=== PATIENT | female | born 1950 | race Caucasian/White ===

== ENCOUNTER 2018-09-04 05:31 | Inpatient (IN) ==
--- NOTE | 2018-09-02 17:30 | MH ---
cc: Jhon Rendon MD DATE OF ADMISSION: 09/04/2018 She will be admitted to the hospital on September 04, 2018. ADMITTING DIAGNOSIS: Severe osteoarthritis of the left hip. HISTORY OF PRESENT ILLNESS: The patient is a 68-year-old white female who has had a rather lengthy history of pain involving her left hip area. She had presented to the undersigned physician in April of this year for a second opinion evaluation, reporting the gradual onset of discomfort generalized about her left hip unrelated to injury or unusual activity, which dated back to approximately 2008. During the previous year, she had undergone a right total hip arthroplasty as completed by Dr. Brennon Valencia. The patient reports that over the following year, she sustained no less than 34 dislocations of her right hip that required emergency room visits to undergo closed reduction. She indicates that when seen in followup disposition by Dr. Valencia, no further treatment was recommended. During this extended interval of time, she experienced progressive pain about her left hip as related to associated osteoarthritis. She again reports that within the past year or so, she was evaluated at the [facility] in [place], at which time she was diagnosed as having an arthritic condition and advised to consider total hip replacement. The patient has been somewhat reluctant to pursue further operative intervention based upon her experiences involving her right hip surgery and thus, she elected to continue with conservative management, which included taking hydrocodone and methadone twice daily as prescribed by a pain management physician. The patient reports that she became progressively more incapacitated with pain that began to limit all weightbearing activities and describes herself as being disabled as related to the persistent symptoms involving her left hip. She has begun to require use of a cane as an ambulatory aid and has had to modify all weightbearing activities. She did report the possibility of having been diagnosed with dysplasia of her hip during childhood but was unable to be more specific in this regard. Her current x-ray studies revealed severe degenerative changes about the hip joint with pronounced deformation of the femoral head with a significant flattening effect being noted. Total hip components were in place about the right hip with no suggestion for loosening, wear or implant failure. Findings and treatment options were reviewed with the patient at the time of her evaluation. The pros and cons of continuing with conservative management versus operative intervention involving total hip arthroplasty were outlined in detail. Emphasis was made regarding the fact that the decision to proceed with surgery would be left entirely to the patient's discretion. The patient readily admitted that her degree of pain and limitations would indicate that she was more than eager to proceed with operative treatment as discussed and in compliance with her wishes, she is currently being admitted in order that the above be accomplished. PAST MEDICAL HISTORY, HOSPITALIZATIONS AND SURGERIES: In addition to her right total hip arthroplasty complicated by multiple dislocations postoperatively have included appendectomy, herniorrhaphy, D and C and operative treatment of her right little toe with the patient being unable to be more specific in this regard. CURRENT MEDICAL ILLNESSES: Include hypertension and chronic pain syndrome. CURRENT MEDICATIONS: 1. Lisinopril twice daily. 2. Methadone 10 mg 2 tabs twice daily. 3. Hydrocodone taken on a daily basis. 4. Advil is utilized p.r.n. ALLERGIES: THE PATIENT DESCRIBES A DRUG ALLERGY TO MORPHINE, WHICH HAS CAUSED ITCHING, BUT SHE HAS TOLERATED HYDROCODONE AND DEMEROL WITHOUT SIDE EFFECT BEING NOTED. REVIEW OF SYSTEMS: She does wear glasses. There is a history of migraine headaches. No seizure or syncope. No sinus congestion or epistaxis. Auditory acuity intact. No tinnitus. No bleeding gums or dysphagia. Denies cough, shortness of breath, upper respiratory infection, pneumonia, or tuberculosis. No angina or heart disease. Medically managed for hypertension. Appetite good. Bowel movements regular. No hepatitis, gallbladder disease, ulcers or hemorrhoids. Positive history for urinary tract infection. No kidney stones. No previous fractures. No psychiatric illness. Her remaining review of systems is unremarkable and noncontributory. FAMILY HISTORY: The patient has been for 13 years. She has 1 son and 1 daughter, both of whom are described as being in good health. Family history is positive for hypertension, heart disease and uterine cancer. SOCIAL HISTORY: The patient completed a BS college degree. 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 Denies active use of tobacco. Ethanol consumption in the form of 2 glasses of wine nightly. PHYSICAL EXAMINATION: VITAL SIGNS: Height 5 feet 5.5 inches, weight 143 pounds. GENERAL: Alert, oriented, and responsive 68-year-old white female sitting quietly upon the examination table in mild distress as related to pain generalized about her left hip. HEAD, EARS, EYES, NOSE AND THROAT: Pupils are equally round and reactive to light. Extraocular movements full. Sclerae are clear. External nares clear. External auditory canals clear. Dental intact. Mucous membranes pink and moist. Pharynx clear. NECK: Supple. Active range of motion with mild discomfort at the extremes of mobility indicated to be chronic in nature. Carotid pulse is palpable bilaterally. Trachea midline. Thyroid without enlargement. LUNGS: Clear to auscultation and percussion. CHEST/BACK: No CVA tenderness. No discomfort throughout the dorsolumbar spine. HEART: Regular rate and rhythm. No murmur or gallop. ABDOMEN: Soft, nontender, bowel sounds present. PELVIC: Per primary care physician. EXTREMITIES: Left hip, there is no localizing tenderness of the hip joint in a seated position. There is restricted and guarded mobility in all ranges assessed being most pronounced with internal rotation and abduction maneuvering and pain elicited at the extremes of motion. No associated crepitation or instability. Straight leg raising is unremarkable at 80 degrees. Kei sign is positive. Distal sensory grossly intact. There is suggestion for limb length discrepancy with shortening on the left side of almost 2 cm magnitude. Distal sensory grossly intact. Pronounced antalgic gait. NEUROLOGIC: Cranial nerves 2-12 grossly intact. IMPRESSION: Severe osteoarthritis of the left hip. PLAN: Left total hip arthroplasty. The nature of the planned surgical procedure, the potential complications and risks associated, the expectations of surgery and the consent form were thoroughly reviewed with the patient prior to admission to the hospital. Aarti has indicated her full understanding regarding all of the above and given consent to proceed with treatment as outlined. Medical evaluation and clearance for surgery completed by her primary care physician, Dr. Joseph. Jhon Rendon MD NBS/es , 04:55 PM , 05:10 PM
[2018-09-04] MEDS ORDERED: Chlorhexidine Gluconate 2% 1 Pack (2 Cloths) TOPICAL ONE (06:30)
[2018-09-04] MEDS ORDERED: Sodium Chlor 0.9% Inj 500 ML IV.CONT ONE (06:30)
[2018-09-04] MEDS ORDERED: Metoprolol Tartrate 25 MG Tablet PO ONE (06:30)
[2018-09-04] MEDS ORDERED: ceFAZolin 2 GM Premix Inj 2 GM/50 ML PIGGYBACK IV.SIG SCH (07:00)
[2018-09-04] MEDS ORDERED: Tranexamic Acid Inj 1,000 MG in Sodium Chlor 0.9% Inj 100 ML IV.SIG SCH ×2 (07:00→10:00)
[2018-09-04] MEDS ORDERED: Neostigmine Inj 5 MG/5 ML Syringe IV.PUSH ONE (07:20)
[2018-09-04] MEDS ORDERED: Glycopyrrolate Inj 1 MG/5 ML Syringe IV.PUSH ONE (07:20)
[2018-09-04] MEDS ORDERED: Famotidine PF Inj 20 MG/2 ML Vial ONE (07:20)
[2018-09-04] MEDS ORDERED: Lidocaine PF 1% Inj 5 ML Syringe OTHER ONE (07:20)
[2018-09-04] MEDS ORDERED: hydrALAZINE HCl Inj 20 MG/ML Vial IV.PUSH ONE (07:20)
[2018-09-04] MEDS ORDERED: ceFAZolin 2 GM Premix Inj 2 GM/50 ML PIGGYBACK IV.SIG ONE (08:27)
[2018-09-04] MEDS ORDERED: HYDROmorphone PF Inj 1 MG/ML Ampul ONE (10:30)
[2018-09-04] MEDS ORDERED: *Meperidine Inj 25 MG/ML Vial PERIprocedural Use ONLY ONE (10:35)
[2018-09-04] MEDS ORDERED: Acetaminophen 325 MG Tablet PO PRN (10:43)
[2018-09-04] MEDS ORDERED: Naloxone Inj 0.4 MG/ML Vial IV.PUSH PRN (10:43)
[2018-09-04] MEDS ORDERED: Bisacodyl 10 MG Supp RECTAL PRN (10:43)
[2018-09-04] MEDS ORDERED: Post-op Orders (for Pharmacy) OTHER STA (10:43)
[2018-09-04] MEDS ORDERED: Tranexamic Acid Inj 1,000 MG in Sodium Chlor 0.9% Inj 100 ML IV.SIG ONE (10:43)
[2018-09-04] MEDS ORDERED: Aluminum/Magnesium/Simethacone Susp 30 ML UDC PO PRN (10:43)
[2018-09-04] MEDS ORDERED: *HYDROmorphone PF Inj 1 MG/ML Ampul PERIprocedural Use ONLY ONE ×2 (10:46→10:52)
--- NOTE | 2018-09-04 10:47 | P.DCO ---
- Diagnosis (1) Degenerative joint disease of left hip Status: Chronic - Physical Therapy Order: Evaluate and treat, Improve ambulation, Strength and gait training - Home Health Nursing Order: Wound care and dressing changes, Nursing assessment with vital signs - Home Health Aide Order: To assist in: Bathing and personal care, colorer and meal prep - Cashier And Waiter/Waitress Order: To evaluate: Living conditions/environment, Support services Order: To provide: Long range planning, Community services - Case Management Consult Yes - Certification I have seen patient Asim Alejo on 09/04/18. My clinical findings support the need for the requested home health care services because: Limited ability to care for self, High risk of falls I certify that my clinical findings support that this patient is homebound because: Post-op weakness, Unsteady gait/balance, Unsafe to leave home unassisted (1) Degenerative joint disease of left hip Qualifiers: Osteoarthritis type: resulting from hip dysplasia Qualified Code(s): M16.32 - Unilateral osteoarthritis resulting from hip dysplasia, left hip
[2018-09-04] MEDS ORDERED: fentaNYL Citrate Inj 100 MCG/2 ML Ampul ONE ×2 (10:49→10:53)
[2018-09-04] MEDS ORDERED: HYDROmorphone PCA Inj 6 MG/30 ML PCA.VIAL PCA ONE (10:52)
--- NOTE | 2018-09-04 11:24 | MP ---
cc: Jhon Rendon MD DATE OF OPERATION: 09/04/2018 PREOPERATIVE DIAGNOSIS: Severe osteoarthritis of the left hip. POSTOPERATIVE DIAGNOSIS: Severe osteoarthritis of the left hip. PROCEDURE PERFORMED: Left total hip arthroplasty. SURGEON: Jhon Rendon MD ANESTHESIA: General endotracheal. INDICATIONS: A 68-year-old white female with a lengthy history of left hip pain who had originally presented to the office in April of this year for a second opinion evaluation, reporting the onset of her hip symptoms unrelated to injury or unusual activity. Her history extended back to approximately 2008, at which time the patient had undergone a previous right total hip arthroplasty, but over the following years, reports no less than 34 dislocations of her right hip that required emergency room visits undergoing closed reduction. Her treating surgeon apparently had no further recommendations regarding treatment and over this interval of time, she became progressively more symptomatic with pain about her left hip as related to osteoarthritis. Within the past year, she was evaluated at the [facility] in [place], and at that time, her diagnosis of arthritis of the left hip was confirmed. She was advised to consider total hip replacement. She was somewhat reluctant to proceed with operative treatment based upon her experience involving her right hip and elected to continue with conservative management, which included taking hydrocodone and methadone twice daily as prescribed by pain management physician. She became progressively more incapacitated with pain that began to limit all weightbearing activities and describes herself as being disabled as related to her persistent hip symptoms. She began to require use of a cane as an ambulatory aid and had to modify all weightbearing activities. She underwent more current evaluation with her x-ray studies revealing severe degenerative changes about the hip joint with pronounced deformation of the femoral head and a significant flattening effect. The total hip components were identified about the right hip. Findings and treatment options were reviewed with the patient. The pros and cons of continuing with conservative management versus operative intervention that would involve a total hip replacement were outlined in detail. Emphasis was made regarding the fact that the decision to proceed with surgery would be left entirely to the patient's discretion. She readily admitted that her symptoms had progressed to a point in time where she felt she had no alternative but to proceed with surgery as discussed and in compliance with her wishes, she was scheduled for admission at this time in order that left total hip replacement be completed. FORMAT: Following the induction of satisfactory general anesthesia by endotracheal intubation as completed per the Department of Anesthesia, the patient was positioned upon the operating table in a right lateral decubitus fashion. The left hip and lower extremity proper were isolated with a U-drape, thereafter being prepped with Betadine solution and draped into a sterile field in the routine manner. Prior to initiation of the actual procedure, the standard timeout protocol was completed. All parameters were appropriately addressed and confirmed by operating room personnel. A standard posterolateral approach to the hip was initiated through a sharp skin incision and developed through underlying subcutaneous tissue with hemostasis maintained by electrocautery. By deepening dissection, the fascia overlying the gluteus musculature was exposed and thereafter sharply incised to the limits of the incision, the underlying gluteus fibers being divided with the Bovie on cutting current. Progressive dissection facilitated exposure of the short external rotators structures. The piriformis tendon was utilized in an anatomical landmark and division of these structures was completed in a superior to inferior orientation and reflected medially, exposing the posterior capsule. The sciatic nerve was identified and protected throughout the procedure. An L-shaped capsulotomy was accomplished, which a posterior dislocation of the femoral head was completed. Examination revealed severe degenerative changes with pronounced deformity of the femoral head being noted. The femoral template was positioned for alignment orientation. The neck was scored and thereafter divided with power saw, the amputated segment being passed to the back table as surgical specimen. Attention was initially directed to the proximal femur. Cancellous bone was harvested. The tapered reamer was inserted for alignment orientation and sequential rasping and broaching was accomplished from 7 through 13 mm with the calcar robert being utilized at the 13 mm stage. With the trial component being removed and attention was redirected to the acetabulum. The labrum and reactive soft tissue were sharply excised. Progressive reaming was accomplished from 50 through 61 mm. The 62 trial shell position and determined to be satisfactory. There was a prominent hypertrophic reaction along the inferior margin of the acetabulum, which was excised with a power saw. The 62 size shell was determined to be satisfactory. All trial components being removed, the wound was copiously irrigated with pulsating antibiotic solution, hemostasis maintained by electrocautery. Thereafter, the 62 mm RingLoc acetabular shell was firmly seated in approximately 45 degrees inclination to the horizontal and slight anteversion. A single 25 mm 6.5 cancellous screw was inserted superiorly to augment fixation. The permanent high wall acetabular liner was affixed to the acetabular shell. Attention returned to the proximal femur. The 13 mm trial femoral broach was repositioned and a trial reduction followed utilizing a 36 mm modular head with both the -6 and -3 mm neck length trialed. The -3 sizing was determined to be the more favorable fit. The hip was flexed to 90 degrees and internally rotated to 45 degrees with stability being maintained. An open dislocation was completed, the trial femoral components being removed the canal was thoroughly irrigated with pulsating antibiotic solution, hemostasis maintained by electrocautery. Thereafter, the 13 mm [employer] standard femoral stem was seated in the process. A crack in the calcar was identified and before final seating was accomplished, a cerclage wire was passed circumferentially about the proximal femur and thereafter, the implant was firmly seated in a stable manner. To this a 36 mm ceramic head with -3 mm neck length adapter was attached and open reduction completed and repeat range of motion again noted stability as previously described. Final irrigation was accomplished with hemostasis maintained. The posterior capsule was repaired with 0 Vicryl suture. Piriformis tendon and short external rotator structures were reapproximated in a similar manner. Hemovac drain tubes were inserted through superior stab wound. The fascia of the gluteus musculature was reapproximated with a running 0 Vicryl suture. The remaining portion of the wound was closed in layers in the routine manner, skin margins being reapproximated with a running subcuticular 3-0 Vicryl suture over which Steri-Strips were applied. Xeroform gauze and a bulky dry sterile dressing were placed. The patient was repositioned into the supine orientation where an abduction splint was attached. Anesthesia was discontinued. She was thereafter transferred to a hospital bed and returned to the recovery room in satisfactory condition, having tolerated her operative procedure well. Estimated blood loss was approximately 800 mL as determined per anesthesia. All implants were of the [employer] novelty worker. Jhon Rendon MD NBS/ct , 10:34 AM , 10:51 AM
[2018-09-04] MEDS ORDERED: HYDROmorphone PF Inj 1 MG/ML Ampul IV.PUSH SCH (11:45)
[2018-09-04] MEDS: HYDROmorphone PCA Inj 6 MG/30 ML PCA.VIAL PCA PRN (11:55)
[2018-09-04] MEDS ORDERED: Methadone 10 MG Tablet PO ONE (12:00)
--- NOTE | 2018-09-04 12:02 | XR ---
EXAM DATE: 09/04/2018 11:54 AM EST AGE/SEX: 68 years / Female INDICATIONS: Post op, left hip. CLINICAL DATA: This is the patient's initial encounter. Patient reports that signs and symptoms have been present for 1 day and indicates a pain score of Nonresponsive. MEDICAL/SURGICAL HISTORY: Non-responsive. . Right hip replacement. COMPARISON: No prior exams available for comparison. FINDINGS: Postsurgical changes are noted following left hip replacement. Acetabular cup and femoral component. The well seated. CONCLUSION: Status post left hip replacement. Electronically signed by: Rubén Lyon MD 09/04/2018 12:01 PM EST
--- NOTE | 2018-09-04 12:34 | P.CON ---
History of Present Illness Consult date: 09/04/18 Requesting Physician: Jhon Rendon Reason for Consult: Medical Management Primary Care Provider: Altaf Joseph History of Present Illness: This is a pleasant 68 y/o Female who was brought in today with diagnosis of Severe OA of the left hip for Left total hip arthroplasty by Doctor Sheri Rendon, the patient has history of fall with injury on her left hip seven in 2008, has history of Right hip arthroplasty She is been followed by Orthopedic surgery, after has been recommended for Joint arthroplasty she elected for conservative management been managed with pain medicines, using a cane for ambulation, current X ray studies revealed severe degenerative changes about the hip joint, she has Hypertension, chronic pain syndrome on Methadone, stable in PACU , has high narcotic tolerance. Review of Systems All other systems reviewed negative except as stated in HPI PMFSH - History History Provided By: Patient - Medical History Medical History: Medical History (Last Reviewed 09/04/18 @ 13:52 by Raya Chaudhary PT) Arthritis High cholesterol Hx of Escherichia coli septicemia Hx of dislocation of hip Hx of fracture of vertebral column Neuropathy of right upper extremity Presence of orthopedic joint implant Wears glasses - Surgical History Surgical History: Surgical History (Last Reviewed 09/04/18 @ 13:52 by Raya Chaudhary PT) Hx of appendectomy Hx of sinus surgery Hx of umbilical hernia repair - Family History Family History: Family History (Last Updated 09/04/18 @ 12:30 by Main Velazquez MD) Other Family history of hypertension - Tobacco History Second Hand Smoke Exposure: No Smoking Status: Never smoker - Alcohol History How Often Do You Have a Drink Containing Alcohol: 4 or more times a week - Substance Use History Substance History: No History of Abuse - Travel History Recent Travel in the [facility] Within the Last 8 Weeks: No Recent Travel Out of the Country Within the Last 8 Weeks: No Medications and Allergies Active Medications: Active Medications Acetaminophen (Tylenol) 650 mg PO Q6H PRN PRN Reason: FEVER > 102 F Hydrocodone Bitart/Acetaminophen ([place] 10/325) 1 tab PO Q4H PRN PRN Reason: Pain Al Hydrox/Mg Hydrox/Simethicone (Mag-Al Plus Susp Liq) 30 ml PO Q6H PRN PRN Reason: INDIGESTION Al Hydroxide/Mg Hydroxide (Milk Of Magnesia Liq) 30 ml PO BID PRN PRN Reason: Mild Constipation Aspirin (Aspirin) 325 mg PO BID HARISH Bisacodyl (Dulcolax Supp) 10 mg RECTAL DAILY PRN PRN Reason: SEVERE CONSITIPATION Hydromorphone HCl (Dilaudid Pf Inj) 1 mg IV.PUSH Q3H PRN PRN Reason: BREAKTHROUGH PAIN Lactated Ringer's (Lr 1000 Ml Inj) 1,000 mls @ 30 mls/hr IV.CONT .Q24H ONE Stop: 09/05/18 06:29 Last Infusion: 09/04/18 08:59 Dose: Infused Sodium Chloride (Ns Inj) 500 mls @ 30 mls/hr IV.CONT .[id number] ONE Stop: 09/04/18 23:09 Last Admin: 09/04/18 07:21 Dose: Not Given Cefazolin Sodium/Dextrose (Ancef 2 Gm Premix Inj) 2 gm in 50 mls @ 100 mls/hr IV.SIG ONCE HARISH Stop: 09/04/18 21:00 Last Infusion: 09/04/18 08:26 Dose: Infused Tranexamic Acid 1,000 mg/ (Sodium Chloride) 110 mls @ 200 mls/hr IV.SIG ONCE HARISH Stop: 09/04/18 21:00 Tranexamic Acid 1,000 mg/ (Sodium Chloride) 110 mls @ 200 mls/hr IV.SIG ONCE HARISH Stop: 09/04/18 21:00 Last Infusion: 09/04/18 08:26 Dose: Infused Cefazolin Sodium 1,000 mg/ (Sodium Chloride) 100 mls @ 200 mls/hr IV.SIG Q6H HARISH Stop: 09/04/18 23:29 Hydromorphone/Sodium Chloride (Dilaudid Nuclear Physics Professor Inj) 6 mg in 30 mls @ 0 mls/hr MUSIC PROMOTER UNSCH PRN PRN Reason: per MUSIC PROMOTER parameters Stop: 09/05/18 10:42 Last Admin: 09/04/18 11:55 Dose: 0 mls/hr Lactated Ringer's (Lr 1000 Ml Inj) 1,000 mls @ 80 mls/hr IV.CONT .[id number] [facility] Last Admin: 09/04/18 11:00 Dose: 80 mls/hr Tranexamic Acid 1,000 mg/ (Sodium Chloride) 110 mls @ 200 mls/hr IV.SIG ONCE ONE Stop: 09/04/18 11:15 Lactulose (Lactulose Liq) 30 ml PO DAILY PRN PRN Reason: SEVERE CONSITIPATION Lisinopril (Prinivil) 10 mg PO BID HARISH Lorazepam (Ativan Inj) 1 mg IV.PUSH UNSCH X1 HARISH Last Admin: 09/04/18 10:38 Dose: 1 mg Methadone HCl (Dolophine) 20 mg PO BID HARISH Miscellaneous Information ([facility]) 0 each OTHER UNSCH PRN PRN Reason: SEE DOSE INSTRUCTIONS Miscellaneous Information ([facility]) 0 each OTHER UNSCH PRN PRN Reason: SEE LABEL COMMENTS Stop: 09/05/18 10:34 Naloxone HCl (Narcan Inj) 0.4 mg IV.PUSH PRN PRN PRN Reason: SEE LABEL COMMENTS Ondansetron HCl (Zofran Inj) 4 mg IV.PUSH Q6H PRN PRN Reason: NAUSEA OR VOMITING Povidone Iodine (Betadine 7.5% Scrub) 1 applicatio TOPICAL ONCE HARISH Stop: 09/08/18 06:59 Last Admin: 09/04/18 07:21 Dose: Not Given Senna/Docusate Sodium (Jayna-Colace) 1 tab PO BID [facility] Sennosides (Senokot) 17.2 mg PO BID PRN PRN Reason: Moderate Constipation Sodium Chloride (Ns Flush) 2 ml IV.FLUSH BID [facility] Sodium Chloride (Ns Flush) 2 ml IV.FLUSH PRN PRN PRN Reason: FLUSH AFTER USING IV ACCESS Zolpidem Tartrate (Ambien) 5 mg PO HS PRN PRN Reason: INSOMNIA Allergies Allergy/AdvReac Type Severity Reaction Status Date / Time morphine AdvReac Itching Verified 09/04/18 06:33 Home Medications Medication Instructions Recorded Confirmed Type hydrocodone-acetaminophen 1 tab PO Q4H PRN MDD PA 09/04/18 09/04/18 History lisinopril 10 mg PO BID 09/04/18 09/04/18 History methadone 20 mg PO BID 09/04/18 09/04/18 History Physical Exam Vital signs: Vital Signs 09/04/18 06:49 Pulse Rate 80 Respiratory Rate 18 Blood Pressure 180/78 H Pulse Oximetry 97 Intake & Output 09/03/18 09/04/18 09/04/18 18:59 06:59 18:59 Intake Total 3410 / 3410 Output Total 1600 / 1600 Balance 1810 / 1810 Weight 66 kg Intake: IV 1210 / 1210 LR 1000 mL Inj 1,000 ML @ 30 1000 / 1000 mls/hr IV.CONT .Q24H ONE Rx#: [id number] Cyklokapron Inj 1,000 MG In NS 110 / 110 Inj 100 ML @ 200 mls/hr IV.SIG ONCE HARISH Rx#:[id number] Ancef 2 GM Premix Inj 2 gm In 100 / 100 50 ml @ 100 mls/hr IV.SIG ONCE ONE Rx#:[id number] Anesthesia Amount 2200 / 2200 Output: Estimated Blood Loss 800 / 800 Urine Amount (Catheter) 800 / 800 Indwelling Urethral Catheter 800 / 800 Other: Weight On Admission 66 kg Narrative: GENERAL: This is a well-nourished, well-developed patient, in no apparent distress. CARDIOVASCULAR: Regular rate and rhythm without murmurs, gallops, or rubs. RESPIRATORY: Clear to auscultation. Breath sounds equal bilaterally. No wheezes , rales, or rhonchi. GASTROINTESTINAL: Abdomen soft, non-tender, nondistended. Normal active bowel sounds MUSCULOSKELETAL: Extremities without clubbing, cyanosis, Orthotics in place. NEURO: Alert & Oriented x4 to person, place, time, situation. Moves all ext x4 - Urinary Catheter Management Indwelling Urethral Catheter Cath placed during this visit: yes Reason for continuing: Hourly intake/output Insertion date: 09/04/18 Insertion time: 07:45 Assessment and Plan - Plan 1. Severe OA of the left hip for Left total hip arthroplasty by Doctor Sheri Campostzer Pain medicine, Hemovac in place, Rubber Factory Worker for discharge, PT 2. Hypertension controlled to continue Home medicines. 3. Chronic pain syndrome on Methadone DVT prophylaxis as per Orthopedic surgery. Code Status: Full Code. Discussed Condition With: Patient and Nurse. Discharge Planning: as per Attending physician.
[2018-09-04] MEDS ORDERED: HYDROmorphone PF Inj 1 MG/ML Ampul IV.PUSH PRN (13:14)
[2018-09-04] MEDS: ceFAZolin 1 GM Premix Inj 1 GM/50 ML FROZ.PIGGY IV.SIG SCH ×2 (14:29→20:54)
[2018-09-04] MEDS: Methadone 10 MG Tablet PO SCH (20:52)
[2018-09-04] MEDS: Aspirin 325 MG Tablet PO SCH (20:52)
[2018-09-04] MEDS: Senna/Docusate Sodium 8.6/50 MG Tablet PO SCH (20:53)
[2018-09-04] MEDS: Lisinopril 10 MG Tablet PO SCH (20:53)
[2018-09-04] MEDS ORDERED: Zolpidem Tartrate 5 MG Tablet PO PRN (21:00)
[2018-09-05 00:23] LABS: Hematocrit 28.8 % (35.0-46.0); Hemoglobin 9.6 gm/dL (11.6-15.3)
[2018-09-05] MEDS: ceFAZolin 1 GM Premix Inj 1 GM/50 ML FROZ.PIGGY IV.SIG SCH (01:30)
[2018-09-05] MEDS: HYDROmorphone PCA Inj 6 MG/30 ML PCA.VIAL PCA PRN (01:40)
[2018-09-05 06:38] LABS: Hematocrit 23.4 % (35.0-46.0); Hemoglobin 8.2 gm/dL (11.6-15.3)
--- NOTE | 2018-09-05 09:02 | P.PN ---
Subjective Interval history: This is a pleasant 68 y/o Female who was brought in today with diagnosis of Severe OA of the left hip for Left total hip arthroplasty by Doctor Sheri Rendon, the patient has history of fall with injury on her left hip seven in 2008, has history of Right hip arthroplasty She is been followed by Orthopedic surgery, after has been recommended for Joint arthroplasty she elected for conservative management been managed with pain medicines, using a cane for ambulation, current X ray studies revealed severe degenerative changes about the hip joint, she has Hypertension, chronic pain syndrome on Methadone, stable in PACU , has high narcotic tolerance. 09/05: Patient seen in his bedroom, discussed with nurse Miss Sloan, no nausea, vomit or diarrhea, working with Physical Therapy asked for laboratory found no disturbance. Physical Exam Vital signs: Vital Signs 09/04/18 10:31 09/04/18 10:45 09/04/18 11:00 Temperature 97.0 F L Pulse Rate 107 H 103 H 109 H Respiratory Rate 30 H 26 H 20 Blood Pressure 132/95 H 149/82 H 165/95 H Pulse Oximetry 97 95 09/04/18 11:15 09/04/18 11:30 09/04/18 11:41 Temperature Pulse Rate 102 H 104 H Respiratory Rate 20 14 Blood Pressure 136/73 144/124 H 154/77 H Pulse Oximetry 98 98 09/04/18 11:45 09/04/18 12:00 09/04/18 12:15 Temperature Pulse Rate 108 H 104 H 103 H Respiratory Rate 20 12 17 Blood Pressure 148/78 H 150/86 H 157/90 H Pulse Oximetry 98 99 97 09/04/18 12:30 09/04/18 12:40 09/04/18 12:45 Temperature Pulse Rate 91 H 93 H Respiratory Rate 13 16 14 Blood Pressure 144/87 H 142/76 H Pulse Oximetry 98 98 09/04/18 13:00 09/04/18 13:39 09/04/18 14:00 Temperature Pulse Rate 91 H 93 H Respiratory Rate 11 L 12 11 L Blood Pressure 135/75 141/68 H Pulse Oximetry 98 98 09/04/18 15:00 09/04/18 15:25 09/04/18 16:00 Temperature 97.5 F L 97.4 F L Pulse Rate 88 105 H Respiratory Rate 12 16 14 Blood Pressure 138/80 179/103 H Pulse Oximetry 98 99 09/04/18 19:51 09/04/18 23:32 09/05/18 04:00 Temperature 98.1 F 97.7 F 97.9 F Pulse Rate 101 H 108 H 90 Respiratory Rate 17 17 18 Blood Pressure 167/80 H 165/89 H 133/63 Pulse Oximetry 96 97 94 L 09/05/18 06:20 Temperature Pulse Rate Respiratory Rate 18 Blood Pressure Pulse Oximetry Intake & Output 09/04/18 09/05/18 09/05/18 18:59 06:59 18:59 Intake Total 3560 / 3560 1580 / 1580 Output Total 2580 / 2580 1500 / 1500 Balance 980 / 980 80 / 80 Weight 66 kg 69.2 kg Intake: IV 1260 / 1260 1100 / 1100 LR 1000 mL Inj 1,000 ML @ 80 1000 / 1000 1000 / 1000 mls/hr IV.CONT .[id number] [facility] Rx# :[id number] Cyklokapron Inj 1,000 MG In NS 110 / 110 Inj 100 ML @ 200 mls/hr IV.SIG ONCE HARISH Rx#:[id number] Ancef 1 GM Premix Inj 1 gm In 50 / 50 100 / 100 50 ml @ 200 mls/hr IV.SIG Q6H HARISH Rx#:[id number] Ancef 2 GM Premix Inj 2 gm In 100 / 100 50 ml @ 100 mls/hr IV.SIG ONCE ONE Rx#:[id number] Oral 100 / 100 480 / 480 Anesthesia Amount 2200 / 2200 Output: Estimated Blood Loss 800 / 800 Urine Amount (Catheter) 1650 / 1650 1500 / 1500 Indwelling Urethral Catheter 1650 / 1650 1500 / 1500 Wound Drainage 130 / 130 # 1 Left Anterior Hip Hemovac 130 / 130 Other: Date of Last Bowel Movement 09/03/18 09/03/18 # Bowel Movements 0 Narrative: GENERAL: This is a well-nourished, well-developed patient, in no apparent distress. CARDIOVASCULAR: Regular rate and rhythm without murmurs, gallops, or rubs. RESPIRATORY: Clear to auscultation. Breath sounds equal bilaterally. No wheezes , rales, or rhonchi. GASTROINTESTINAL: Abdomen soft, non-tender, nondistended. Normal active bowel sounds MUSCULOSKELETAL: Extremities without clubbing, cyanosis, cleaned surgical wound. NEURO: Alert & Oriented x4 to person, place, time, situation. Moves all ext x4 - Urinary Catheter Management Indwelling Urethral Catheter Cath placed during this visit: yes Reason for continuing: Hourly intake/output Insertion date: 09/04/18 Insertion time: 07:45 Results - Labs CBC & Chem 7: 09/05/18 04:40 09/05/18 10:00 Laboratory Results - last 24 hr 09/04/18 09/05/18 23:49 04:40 Hgb 9.6 L 8.2 L Hct 28.8 L 23.4 L - Imaging Impressions Hip X-Ray 09/04/18 10:36 CONCLUSION: Status post left hip replacement. - Procedures DATE OF OPERATION: 09/04/2018 PREOPERATIVE DIAGNOSIS: Severe osteoarthritis of the left hip. POSTOPERATIVE DIAGNOSIS: Severe osteoarthritis of the left hip. PROCEDURE PERFORMED: Left total hip arthroplasty. SURGEON: Jhon Rendon MD Assessment and Plan - Plan 1. Severe OA of the left hip for Left total hip arthroplasty by Doctor Sheri Rendon Pain medicine, Hemovac removed, Dialysis Biomed Technician for discharge, PT 2. Hypertension controlled to continue Home medicines. 3. Chronic pain syndrome on Methadone DVT prophylaxis as per Orthopedic surgery. Signed off the case. Code Status: Full Code. Discussed Condition With: Patient and nurse Discharge Planning: Hospitalist cleared for discharge.
[2018-09-05] MEDS: Aspirin 325 MG Tablet PO SCH ×2 (09:05→20:35)
[2018-09-05] MEDS: Senna/Docusate Sodium 8.6/50 MG Tablet PO SCH ×2 (09:06→20:35)
[2018-09-05] MEDS: Lisinopril 10 MG Tablet PO SCH ×2 (09:06→20:36)
[2018-09-05] MEDS: Methadone 10 MG Tablet PO SCH ×2 (09:06→20:33)
[2018-09-05 11:14] LABS: Albumin 2.9 g/dL (3.4-5.0); Anion Gap 6 meq/L (5-15); Aspartate Aminotransferase 26 U/L (15-37); Blood Urea Nitrogen 10 mg/dL (7-18); Calcium 8.2 mg/dL (8.5-10.1); Carbon Dioxide 33.6 meq/L (21.0-32.0); Chloride 102 meq/L (98-107); Glomerular Filtration Rate 86 mL/min (>89); Glucose,Random 105 mg/dL (74-106); Potassium 3.8 meq/L (3.5-5.1); Sodium 142 meq/L (136-145)
[2018-09-05 11:18] LABS: Chol/HDL Ratio 2.43 Ratio; HDL Cholesterol 66.6 mg/dL (40.0-60.0)
[2018-09-05 11:31] LABS: Alanine Aminotransferase 23 U/L (10-53); Alkaline Phosphatase 85 U/L (45-117); Total Protein 5.9 g/dL (6.4-8.2)
[2018-09-05 11:45] LABS: Phosphorus 2.8 mg/dL (2.5-4.9); Thyroid Stimulating Hormone 0.433 uIU/mL (0.358-3.740)
[2018-09-05] MEDS: HYDROmorphone PF Inj 1 MG/ML Ampul IV.PUSH PRN ×3 (15:58→23:21)
[2018-09-05 17:34] LABS: Hemoglobin A1c 4.8 % (4.3-6.0)
--- NOTE | 2018-09-06 07:22 | MD ---
cc: Jhon Rendon MD, Steven DO DATE OF DISCHARGE: 09/06/2018 ADMITTING DIAGNOSIS: Severe osteoarthritis of the left hip. DISCHARGE DIAGNOSIS: Severe osteoarthritis of the left hip. HISTORY: A 68-year-old white female with a lengthy history of left hip pain, having presented to the office in April of this year for a second opinion evaluation, reporting the onset of her symptoms unrelated to injury or unusual activity, which extended back to approximately 2008. During the previous year, she had undergone a right total hip arthroplasty that is completed by Dr. Brennon Valencia. Over the following years, she sustained no less than 34 dislocations of her right hip requiring emergency room visits under closed reduction. She indicates that when seen in followup by her treating surgeon, no further treatment was recommended. During this interval of time, she experienced progressive pain of her left hip as related to associated osteoarthritis. She again reports within the past year or so, she was evaluated at the [facility] in [place], at that time was diagnosed as having an arthritic condition and advised to consider total hip replacement. She was reluctant to pursue further treatment based upon her previous experience as related to right hip surgery and thus elected to continue with conservative management, which included taking hydrocodone and methadone twice daily as prescribed by a pain management physician. She became progressively more incapacitated with the pain began to limit all weightbearing activities and described herself as being disabled as related to persistent symptoms involving her left hip. She required use of a cane as an ambulatory aid and had to modify all weightbearing activities. Her x-ray studies revealed severe degenerative changes with significant deformity of the femoral head and a flattening affect being associated. Findings and treatment options were reviewed with the patient. The pros and cons of continuing with conservative management versus operative intervention that would involve total hip arthroplasty were outlined in detail. Emphasis was made regarding the fact that the decision to proceed with surgery would be left entirely to the patient's discretion. She felt that her symptoms have definitely progressed to a point in time where she was in need of proceeding in this direction and in compliance with her wishes, she was scheduled for admission at this time in order that the above be accomplished. Her physical examination at the time of admission revealed no localizing tenderness about the lateral aspect of the left hip. There was restricted and guarded mobility of the hip joint in all ranges assessed being most pronounced with internal rotation and abduction maneuvering and pain at the extremes of motion. No sensation of crepitation or instability. Straight leg raising unremarkable at 80 degrees. Kei sign positive. Distal sensory grossly intact. Limb length discrepancy with shortening on the left side of at least 2 cm magnitude. Distal sensory grossly intact. Pronounced antalgic gait. HOSPITAL COURSE: Prior to admission to the hospital, the patient had undergone medical evaluation and clearance for surgery as completed by her primary care physician, Dr. Joseph. She was taken to the operating room on 09/04/2018 and on that date underwent a left total hip arthroplasty completed in an uncomplicated manner. She was noted to have tolerated her operative procedure well. Her postoperative course is stable thereafter. Hemoglobin and hematocrit assessment postoperatively was 8.2 and 23.4 respectively. The patient was progressively immobilized under the guidance of physical therapy, advised partial weightbearing for the first 4 weeks following surgery and thereafter being allowed to progress weightbearing to tolerance. DVT prophylaxis was initiated. Senior Procurement Specialist consulted to assist with discharge planning. The patient had expressed her desire for rehab placement. Plans were finalized in this regard through the social service department and pending medical clearance, she was scheduled for transfer on the second postoperative day, at which time she was noted making slow, but steady progress with regard to her initial rehabilitation program. She was scheduled to be seen in office followup in approximately 4 weeks. CONDITION AT THE TIME OF DISCHARGE: Stable. PROGNOSIS: Favorable. DISCHARGE MEDICATIONS: Include hydrocodone 10/325 mg #20 and aspirin 325 mg 1 tab twice daily for 4 weeks, #60. MD CLEMENTINA Wolfe/sv , 06:39 AM , 06:48 AM
[2018-09-06 08:21] VITALS: RESP 16
[2018-09-06] MEDS: Methadone 10 MG Tablet PO SCH (08:28)
[2018-09-06] MEDS: Senna/Docusate Sodium 8.6/50 MG Tablet PO SCH (08:28)
[2018-09-06] MEDS: Aspirin 325 MG Tablet PO SCH (08:28)
[2018-09-06] MEDS: Lisinopril 10 MG Tablet PO SCH (08:28)
[2018-09-06 12:14] VITALS: BP 134/74; PULSE 99; TEMP 97.8; O2SAT 92
== END 2018-09-06 13:47 ==
LOC: HSDI 05:31 → N06 16:00
PROVIDERS: ADMIT Orthopaedic Surgery; ATTEND Orthopaedic Surgery